=== PATIENT | male | born 1990 | race Caucasian/White ===

== ENCOUNTER 2020-11-25 10:30 | Emergency (ER) | payer OTHER ==
[~2020-11-25] VITALS: Ht 180.3 cm; Wt 2.7 kg
[2020-11-25] MEDS ORDERED: CASIRIVIMAB/IMDEVIMAB 10 ML in SODIUM CHLORIDE 0.9% 100 ML IV ONE (11:00)
== END 2020-11-25 12:37 | disposition home or self-care (01) ==
LOC: ER 10:37
DX: U07.1 COVID-19 (principal)
CPT/HCPCS: 99283

== ENCOUNTER 2021-11-27 15:53 | Emergency (ER) | payer OTHER ==
[~2021-11-27] VITALS: Ht 180.3 cm; Wt 79.4 kg
[2021-11-27] MEDS ORDERED: KETOROLAC TROMETHAMINE 30 MG/ML VIAL IM STA (17:04)
[2021-11-27] MEDS ORDERED: ACETAMINOPHEN 325 MG TAB PO ONE (17:30)
[2021-11-27] MEDS ORDERED: ONDANSETRON ODT4 MG PO (18:12)
[2021-11-27] MEDS ORDERED: MUCINEX DM ER1 EACH PO (18:12)
== END 2021-11-27 18:20 | disposition home or self-care (01) ==
LOC: ER 17:04
DX: R50.9 Fever, unspecified (principal); U07.1 COVID-19; J02.9 Acute pharyngitis, unspecified
CPT/HCPCS: 99283; J1885